=== PATIENT | male | born 1985 | race Asian ===

== ENCOUNTER 2021-04-19 07:24 | Emergency (ER) | payer MEDICAID ==
[~2021-04-19] VITALS: Ht 170.2 cm; Wt 65.9 kg
[2021-04-19 07:27] VITALS: BP 163/115
--- NOTE | 2021-04-19 07:54 | NUR ---
dr. howard at bedside. pt provided with green scrubs and bags for clothing. pt has flat affect, states "for the most part" [place] and "this is not new" pt reports fatigue, headache and ankle pain. ambulated with steady gait to er bed 15.
--- NOTE | 2021-04-19 09:02 | NUR ---
lab at bedside.
[2021-04-19 09:19] LABS: BASOPHILS % (AUTO) 0.4 % (0-1); EOSINOPHILS % (AUTO) 0.3 % (0-6); HEMATOCRIT 46.4 % (42.0-52.0); HEMOGLOBIN 15.9 g/dl (14.0-17.9); LYMPHOCYTES # (AUTO) 1.5 X10'3 (1.1-4.8); LYMPHOCYTES % (AUTO) 16.4 % (21-51); MEAN CORPUSCULAR HEMOGLOBIN 33.4 PG (27.0-31.0); MEAN CORPUSCULAR HGB CONC 34.3 g/dL (33.0-36.5); MEAN CORPUSCULAR VOLUME 97.3 FL (78-98); MEAN PLATELET VOLUME 8.3 FL (7.4-10.4); MONOCYTES # (AUTO) 0.5 X10'3 (0-0.9); MONOCYTES % (AUTO) 5.5 % (2-12); NEUTROPHILS # (AUTO) 7.3 X10'3 (1.8-7.7); NEUTROPHILS % (AUTO) 77.4 % (42-75); PLATELET COUNT 318 X10'3 (140-440); RED BLOOD COUNT 4.76 X10'6 (4.70-6.10); WHITE BLOOD COUNT 9.4 X10'3 (4.5-11.0)
[2021-04-19 09:25] LABS: ALANINE AMINOTRANSFERASE 37 U/L (12-78); ALBUMIN 3.8 G/DL (3.4-5.0); ALBUMIN/GLOBULIN RATIO 1.1 (1.1-1.5); ALKALINE PHOSPHATASE 94 IU/L (46-116); ANION GAP 7 (8-16); ASPARTATE AMINO TRANSFERASE 26 U/L (10-37); BILIRUBIN,TOTAL 0.4 MG/DL (0.1-1.0); BLOOD UREA NITROGEN 13 MG/DL (7-18); BUN/CREATININE RATIO 12.6 (5.4-32.0); CALCIUM 8.9 MG/DL (8.5-10.1); CHLORIDE 107 MMOL/L (99-107); CREATININE 1.03 MG/DL (0.60-1.10); GLUCOSE 105 MG/DL (70-104); POTASSIUM 3.6 MMOL/L (3.5-5.1); SODIUM 143 MMOL/L (135-145); TOTAL CARBON DIOXIDE 29.3 MMOL/L (24-32); TOTAL PROTEIN 7.2 G/DL (6.4-8.2); eGFR 81 ML/MIN
[2021-04-19 09:34] LABS: ETHANOL < 0.010 GM/DL (0.0-0.010)
--- NOTE | 2021-04-19 10:00 | NUR ---
Pt. recieved from ER, he ambulated into unit with staff without issue.
--- NOTE | 2021-04-19 10:15 | NUR ---
1:1 assessment complted at the bedside. Pt. c/o 03/23 Lt. ankle pain.
--- NOTE | 2021-04-19 10:20 | NUR ---
Pt. repots he was admitted d/t " I had a mental break down" He reports SI with no plan stating " I often think of doing it", and endorses Hx of SI and depression.He denies A/H V/H, HI, and has no plan for discharge. Pt. is cooperative with interview, but reluctant to provide urine sample. He endorses "self medicating on the streets." Pt. presents as unkept, and odorous, he is dressed in green unit scrubs. Pt. arrived with 2 hospital bags and were items were logged in by staff.
[2021-04-19] MEDS ORDERED: NO HOME MEDS (10:38)
--- NOTE | 2021-04-19 11:24 | NUR ---
Pt. refuses to provide a urine sample for staff. He has been given 800cc of water, and 340 of milk an hour ago. Pt. is not willing to get OOB to attempt to urinate. Staff at the bedside discussing the importance of screening. Pt. began to yell "I know what my fucking body can do, and getting tired of being asked, Ill fucking erick this hospital."
--- NOTE | 2021-04-19 11:47 | NUR ---
Urine specimen collected and sent to lab; pending results
[2021-04-19 12:02] LABS: URINE AMPHETAMINE SCREEN POSITIVE (Neg); URINE BARBITUATE SCREEN NEGATIVE (Neg); URINE BENZODIAZEPINES SCREEN NEGATIVE (Neg); URINE CANNABINOID SCREEN POSITIVE (Neg); URINE COCAINE SCREEN NEGATIVE (Neg); URINE METHADONE SCREEN NEGATIVE (Neg); URINE OPIATE SCREEN NEGATIVE (Neg); URINE PHENCYCLIDINE SCREEN NEGATIVE (Neg)
--- NOTE | 2021-04-19 12:09 | NUR ---
Pkjackie. sent to Mental Health
--- NOTE | 2021-04-19 12:47 | NUR ---
Pt. sitting on his bed eating lunch, no distress noted.
--- NOTE | 2021-04-19 13:30 | NUR ---
Pt. in his bed awake. [employer] offered warm water and hygiene products to get cleaned up; pt. refused any need.
[2021-04-19] MEDS ORDERED: busPIRone 15mg tablet PO SCH (14:10)
[2021-04-19] MEDS ORDERED: busPIRone 15mg tablet PO ONE (14:10)
--- NOTE | 2021-04-19 14:30 | NUR ---
Pt. slightly agitated d/t commotion on unit. Medication previously given 10min. ago
--- NOTE | 2021-04-19 14:59 | NUR ---
THe patient agitated by screaming peer. He requested and received Buspar. He refused any other medications at this time. [facility]
--- NOTE | 2021-04-19 15:15 | NUR ---
Pt. presented extremely agitated d/t verbal commotion from his roommate. He was in the process of being interviewed by [facility], he started yelling and beating on his chest saying "shut the fuck up bitch, I've been to long term twice, Ill fuck you up bitch!" Security was called. With security present their were no further incidents.
--- NOTE | 2021-04-19 15:28 | NUR ---
[facility] back at the bedside talking to pt.
== END 2021-04-19 16:30 | disposition home or self-care (01) ==
LOC: ER 07:25
DX: F32.9 Major depressive disorder, single episode, unspecified (principal); Z20.822 Contact with and (suspected) exposure to COVID-19; F43.20 Adjustment disorder, unspecified; R51.9 Headache, unspecified; M25.562 Pain in left knee
CPT/HCPCS: 36415; 80053; 80305; 80320; 84443; 85025; 87635; 99284; C9803